=== PATIENT | male | born 1995 | race Caucasian/White ===

== ENCOUNTER 2017-05-21 09:24 | Emergency (ER) | payer OTHER ==
[2017-05-21] MEDS ORDERED: IBUPROFEN 800 MG TABLET PO STA (09:45)
--- NOTE | 2017-05-21 09:49 | ED Physician Documentation ---
PD HPI NECK PAIN - Stated complaint Stated Complaint: NECK PAIN - Chief complaint Chief Complaint: Back Pain - History obtained from History obtained from: Patient - History of Present Illness Timing - onset: Yesterday Timing - details: Still present Location: Lower, Right Quality: Pain Associated symptoms: No: Fever, Weakness, Numbness Worsened by: Movement, Twisting Contributing factors: Other (Slipped on ice yesterday.) Similar symptoms before: Has not had sx before - Additional information Additional information: The patient is a 22-year-old [employer] male who presents with pain on the right side of his neck. Yesterday he slipped on the ice and jolted his neck. He did not fall or hit his head. He had pain in his neck immediately after the incident, and it continues this morning. It is worse with attempts to move his head from side to side. He denies headache, numbness or weakness, or pain in his lower back. He denies history of similar symptoms in the past. He is right-hand dominant. Review of Systems Constitutional: denies: Fever Ears: denies: Tinnitus/ringing Nose: denies: Congestion Throat: denies: Sore throat Cardiac: denies: Chest pain / pressure Respiratory: denies: Dyspnea, Cough GI: denies: Abdominal Pain, Nausea, Vomiting : denies: Dysuria Skin: denies: Rash Musculoskeletal: reports: Neck pain. denies: Back pain, Extremity pain Neurologic: denies: Focal weakness, Numbness, Headache PD PAST MEDICAL HISTORY - Past Medical History Past Medical History: No Cardiovascular: None Respiratory: None Endocrine/Autoimmune: None - Past Surgical History Past Surgical History: No - Present Medications Home Medications: Ambulatory Orders Medication Instructions Recorded Confirmed Cyclobenzaprine [Flexeril] 10 mg PO TID PRN #20 tablet 05/21/17 Ibuprofen 800 mg PO TID PRN #30 tablet 05/21/17 - Allergies Allergies/Adverse Reactions: Allergies Allergy/AdvReac Type Severity Reaction Status Date / Time No Known Drug Allergies Allergy Verified 05/21/17 09:34 - Social History Does the pt smoke?: No Smoking Status: Never smoker - Immunizations Immunizations are current?: Yes PD ED PE NORMAL - Vitals Vital signs reviewed: Yes (normal) - General General: Alert and oriented X 3, Well developed/nourished - HEENT HEENT: Atraumatic, EOMI, Ears normal, Pharynx benign - Neck Neck: Supple, no meningeal sign, No bony TTP, No adenopathy, No JVD, Other ( There is tenderness to palpation in the right paracervical musculature, without tenderness along the spinous processes. He can turn his head to the left to 45 , but does not turn his head to the right secondary to pain.) - Cardiac Cardiac: RRR, No murmur - Respiratory Respiratory: No respiratory distress, Clear bilaterally - Abdomen Abdomen: Soft, Non tender - Back Back: No CVA TTP, No spinal TTP - Derm Derm: No rash - Extremities Extremities: No edema, No calf tenderness / cord - Neuro Neuro: Alert and oriented X 3, No motor deficit, No sensory deficit, Normal speech Results - Vitals Vitals: Oxygen O2 Source Room air - Rads (name of study) c-spine Radiology: Prelim report reviewed, EMP read contemporaneously, See rad report ( Normal C-spine exam, no evidence of fracture or malalignment.) PD MEDICAL DECISION MAKING - ED course Complexity details: reviewed results, re-evaluated patient, considered differential, d/w patient ED course: The patient's presentation is most consistent with acute cervical strain. There is no evidence of bony abnormality on radiographic imaging. Treatment in the emergency department included administration of ibuprofen 800 mg orally. I discussed with him the results of the x-ray, the expected course of healing, symptomatic treatment and outpatient follow-up, as well as potentially worrisome signs or symptoms that should prompt reevaluation in the emergency department. He is being discharged with prescriptions for Flexeril and for ibuprofen. Departure - Departure Disposition: 01 Home, Self Care Clinical Impression: Cervical strain, acute Qualifiers: Encounter type: initial encounter Qualified Code(s): S16.1XXA - Strain of muscle, fascia and tendon at neck level, initial encounter Condition: Stable Instructions: ED Sprain Strain Neck Follow-Up: BETTY Thompson [Provider Group] Prescriptions: Cyclobenzaprine [Flexeril] 10 mg PO TID PRN #20 tablet PRN Reason: Spasms Ibuprofen 800 mg PO TID PRN #30 tablet PRN Reason: Pain Comments: Apply ice pack to your neck intermittently for the next 3 or 4 days. You can use ibuprofen, up to 800 mg 3 times daily for its anti-inflammatory effect. You can use Flexeril as prescribed as needed for muscle spasms. Let pain be your guide to activity level. Follow up with your primary physician within 1 week. Call to schedule appointment. Return to the emergency department if you develop increasing pain, numbness or weakness, fever, or otherwise worsening symptoms. Forms: Activity restrictions Discharge Date/Time: 05/21/17 10:53
--- NOTE | 2017-05-21 10:29 | XRAY Report ---
EXAM: CERVICAL SPINE RADIOGRAPHY EXAM DATE: 05/21/2017 10:06 AM. CLINICAL HISTORY: Neck pain after slipping on ice yesterday. COMPARISONS: None. TECHNIQUE: 3 views. FINDINGS: Alignment: No spondylolisthesis or scoliosis. Bones: The cervical vertebral bodies and posterior elements are well visualized from the skull base t hrough C7-T1. No fracture or bone destructive process. Intact odontoid process and posterior elements . Disks: Disk heights are maintained. Facets: No significant abnormality identified. Soft Tissues: No prevertebral soft tissue swelling. The visualized lung apices are clear. IMPRESSION: 1. Negative exam. No fracture or malalignment of the cervical spine. [facility] Referring Provider Line: [phone] SITE ID: [id number]
--- NOTE | 2017-05-21 10:29 | XRAY Preliminary Report ---
Exam: XR CERVICAL SPINE 2 VIEW IMPRESSION: 1. Negative exam. No fracture or malalignment of the cervical spine. [facility] SITE ID: [id number]
[2017-05-21 10:51] VITALS: BP 106/78
== END 2017-05-21 10:53 | disposition home or self-care (01) ==
LOC: ED 09:24
DX: S16.1XXA Strain of muscle, fascia and tendon at neck level, initial encounter (principal); W18.40XA Slipping, tripping and stumbling without falling, unspecified, initial encounter
CPT/HCPCS: 72040; 99283; A9270